=== PATIENT | female | born 1980 | race Native Hawaiian/Other Pacific Islander ===

== ENCOUNTER 2016-12-01 18:33 | Emergency (ER) | payer BC ==
[2016-12-01 18:47] VITALS: RESP 16; TEMP 97.8
--- NOTE | 2016-12-01 19:31 | ED ---
Extremity Problem HPI - General Chief complaint: Extremity Problem,Nontraumatic Stated complaint: pos dvt Time Seen by Provider: 12/01/16 18:57 Source: patient, family, RN notes reviewed Mode of arrival: wheelchair Limitations: no limitations - History of Present Illness Initial comments: Patient a 36-year-old female presents emergency room for treatment of DVT. Patient states on Tuesday she began noticing left leg swelling. Patient denies any trauma or injuries to her leg. Patient states swelling did not subside and she is having slight pain in her legs associated primary care provider today. Patient states she was sent for an ultrasound and was positive for DVT. Patient denies any history of DVTs. Patient does admit to smoking and is on control. Patient denies recent travel or sitting for long periods of time. Patient denies any numbness or tingling in her toes. Patient states she doesn't have significant pain. Patient denies shortness of breath. Patient has a fevers or chills. Patient denies any other symptoms. - Related Data Home Medications Medication Instructions Recorded Confirmed Norethindrone-E.estradiol-Iron 1 tab PO DAILY 12/01/16 12/01/16 [Blisovi Fe 1-20 Tablet] Previous Rx's Medication Instructions Recorded Apixaban [Eliquis] 5 mg PO DIRECTED 30 Days 12/01/16 Allergies Allergy/AdvReac Type Severity Reaction Status Date / Time No Known Allergies Allergy Verified 12/01/16 19:03 Review of Systems ROS Statement: Those systems with pertinent positive or pertinent negative responses have been documented in the HPI. ROS Other: All systems not noted in ROS Statement are negative. Past Medical History Past Medical History: No Reported History History of Any Multi-Drug Resistant Organisms: None Reported Past Psychological History: No Psychological Hx Reported Smoking Status: Current every day smoker Past Alcohol Use History: None Reported Past Drug Use History: None Reported General Exam - General Exam Comments Initial Comments: Sitting in exam room in no acute distress. Limitations: no limitations General appearance: alert, in no apparent distress Head exam: Present: atraumatic, normocephalic, normal inspection Eye exam: Present: normal appearance ENT exam: Present: normal exam Neck exam: Present: normal inspection Respiratory exam: Present: normal lung sounds bilaterally. Absent: respiratory distress Cardiovascular Exam: Present: regular rate, normal rhythm, normal heart sounds Left Lower Leg exam: Present: full ROM, swelling. Absent: tenderness Ankle exam: Present: swelling Foot/Toe exam: Present: swelling Neurovascular tendon exam: Present: no vascular compromise. Absent: pulse deficit (2+ dorsal pedal and posterior tibial pulses), abnormal cap refill ( Capillary refill less than 2 seconds) Back exam: Present: normal inspection Neurological exam: Present: alert, oriented X3, CN II-XII intact, normal gait Psychiatric exam: Present: normal affect, normal mood Skin exam: Present: warm, dry, intact, normal color. Absent: rash Course Vital Signs 12/01/16 18:44 Temperature 97.8 F Pulse Rate 79 Respiratory 16 Rate Blood Pressure 180/107 O2 Sat by Pulse 98 Oximetry Medical Decision Making - Medical Decision Making Patient is a 36-year-old female presents emergency room for DVT. Patient will be started on Eliquis. Patient declined any pain medications. Patient to follow -up with her primary care provider. Patient states she understands everything that was discussed with her. Return parameters discussed. Case discussed with Dr. Brink. - Radiology Data Radiology results: report reviewed, image reviewed Disposition Clinical Impression: Deep vein thrombosis of lower extremity Disposition: HOME SELF-CARE Condition: Good Instructions: Deep Venous Thrombosis (ED) Additional Instructions: Take medications as directed. Take Tylenol or Motrin as needed for pain. Please follow up with primary care provider in 24-48 hours for reevaluation. If any new symptom arises, symptoms worsen or fever develops, return to ER as soon as possible. Prescriptions: Apixaban [Eliquis] 5 mg PO DIRECTED 30 Days Referrals: Shereen Adams MD [Primary Care Provider] - 1-2 days Time of Disposition: 19:26
[2016-12-01] MEDS ORDERED: APIXABAN 5 MG TAB PO STA (19:35)
[2016-12-01 20:05] VITALS: BP 162/98; PULSE 99
== END 2016-12-01 20:05 | disposition home or self-care (01) ==
LOC: EC 18:33
DX: I82.402 Acute embolism and thrombosis of unspecified deep veins of left lower extremity (principal); F17.200 Nicotine dependence, unspecified, uncomplicated; Z79.3 Long term (current) use of hormonal contraceptives; R50.9 Fever, unspecified
CPT/HCPCS: 99283

== ENCOUNTER → 2016-12-01 | Outpatient (CLI) | payer BC ==
--- NOTE | 2016-12-01 18:23 | US ---
EXAMINATION TYPE: US venous doppler duplex LE LT DATE OF EXAM: 12/01/2016 6:14 PM COMPARISON: NONE CLINICAL HISTORY: left calf pain, swelling, redness. No hx of blood clots or on blood thinners. Fam levi hx of blood clots. SIDE PERFORMED: Left VESSELS IMAGED: External Iliac Vein (EIV) Common Femoral Vein Deep Femoral Vein Greater Saphenous Vein * Femoral Vein Popliteal Vein Small Saphenous Vein * Proximal Calf Veins (* superficial vessels) TECHNOLOGIST IMPRESSION: Left Leg: Appears positive for DVT from mid CFV down to Proximal calf veins. Noncompressible. Inte rnal echoes seen. There is lack of compressibility and color flow in the lower femoral vein and popliteal vein. IMPRESSION: There is evidence of acute deep venous thrombosis in the lower femoral vein and the popl iteal vein.
== END | disposition home or self-care (01) ==
LOC: RADUSMAIN 17:34
PROVIDERS: ATTEND Internal Medicine
DX: I82.412 Acute embolism and thrombosis of left femoral vein (principal); I82.432 Acute embolism and thrombosis of left popliteal vein